=== PATIENT | female | born 1985 | race Caucasian/White ===

== ENCOUNTER 2016-10-01 10:17 | Emergency (ER) | payer MEDICAID, OTHER ==
[~2016-10-01] VITALS: Ht 162.6 cm; Wt 71.5 kg
[~2016-10-01 10:17] MED LIST: PRENAT PO
[2016-10-01 10:30] VITALS: Ht 162.6 cm; Wt 71.5 kg
[2016-10-01] MEDS ORDERED: ACETAMINOPHEN 325 MG TAB PO STA (11:04)
[2016-10-01] MEDS ORDERED: SOD CHLORIDE 0.9% 1,000 ML IV STA (11:04)
[2016-10-01] MEDS ORDERED: ONDANSETRON 4 MG INJ IV STA (11:04)
[2016-10-01 11:49] LABS: ADD SCAN DIFF NO
[2016-10-01 11:57] LABS: BASOPHILS % 0.3 % (0.0-2.0); EOSINOPHILS # 0.1 10^3/ul (0.0-0.5); EOSINOPHILS % 1.2 % (0.0-7.0); HEMATOCRIT 36.9 % (37.0-47.0); LYMPHOCYTES # 1.6 10^3/ul (0.8-2.9); LYMPHOCYTES % 17.3 % (15.0-51.0); MEAN CORPUSCULAR HGB CONC 32.5 g/dl (32.0-37.0); MEAN PLATELET VOLUME 10.7 fl (7.4-10.4); MONOCYTE # 0.5 10^3/ul (0.3-0.9); MONOCYTES % 5.4 % (0.0-11.0); NEUTROPHIL # 6.9 10^3/ul (1.6-7.5); NEUTROPHILS % 75.5 % (39.0-77.0); PLATELET COUNT 247 10^3/UL (140-415); RED BLOOD COUNT 4.29 10^6/ul (4.20-5.40); RED CELL DISTRIBUTION WIDTH 13.1 % (11.5-14.5); WHITE BLOOD COUNT 9.1 10^3/ul (4.8-10.8)
--- NOTE | 2016-10-01 12:06 | RADRPT ---
PROCEDURE: US Renal CLINICAL INDICATION: Hematuria. Pain. TECHNIQUE: Multiple sonographic images of the kidneys and bladder were obtained. Evaluation of th e kidneys and bladder was performed as well with vieira scale and color and Doppler evaluation using a curved array transducer. The images were reviewed on a high-resolution PACS workstation. COMPARISON: No prior studies are available for comparison. FINDINGS: The right kidney measures 11.1 cm. The left kidney measures 11.3 cm. There is normal echogenicity within the parenchyma of the kidneys bilaterally. There is no mass, calculus, or obstructive uropathy. No perinephric fluid collection is seen. Evaluation of the urinary bladder is unremarkable. IMPRESSION: 1. Unremarkable renal ultrasound. RPTAT: AACC Physician Gabriella Date Time Electronically viewed and signed by Physician Gabriella on 10/01/2016 12:06 /
--- NOTE | 2016-10-01 12:08 | RADRPT ---
PROCEDURE: OBSTETRICAL ULTRASOUND WITH ENDOVAGINAL IMAGES CLINICAL INDICATION: Vaginal Bleed () TECHNIQUE: Multiple sonographic images of the pelvis were obtained utilizing a transabdominal and endovaginal technique. The images were reviewed on a PACS workstation. COMPARISON: None. LMP: 08/07/2016 FINDINGS: There is a single live intrauterine with heart rate of 159 beats per minute, mean sa c diameter of 2.32 cm, yolk sac, and crown-rump length of 1.33 cm which is consistent with a gestati onal age of 7 weeks, 3 days . The estimated date of delivery by ultrasound is 05/17/2017 . The estimated gestational age by LMP is 7 weeks, 6 days . The estimated date of delivery by LMP is 05/14/2017 . Bilateral ovaries are not visualized. There are no abnormal adnexal masses. No significant pelvic free fluid is identified. IMPRESSION: Single live intrauterine consistent with a gestational age of 7 weeks, 3 days . The estimated date of delivery is 05/17/2017 . Dating by ultrasound is within 3 days of dating by LMP. Bilateral ovaries are not visualized. There are no abnormal adnexal masses. RPTAT: EE Physician Francisco Date Time Electronically viewed and signed by Physician Francisco on 10/01/2016 12:08 /
[2016-10-01 12:13] LABS: ALBUMIN 4.8 g/dl (3.3-4.9); ALBUMIN/GLOBULIN RATIO 1.33; BILIRUBIN,INDIRECT 0.8 mg/dl (0-1.1); BILIRUBIN,TOTAL 0.8 mg/dl (0.2-1.3); CALCIUM 9.8 mg/dl (8.4-10.2); CREATININE 0.5 mg/dl (0.44-1.00); POTASSIUM 4.1 mmol/L (3.5-5.1); TOTAL PROTEIN 8.4 g/dl (6.1-8.1)
[2016-10-01 12:16] LABS: ADD UMIC YES; UR ASCORBIC ACID NEGATIVE (NEGATIVE); UR BACTERIA FEW /HPF (NONE SEEN); UR BILIRUBIN (Dip) NEGATIVE (NEGATIVE); UR BLOOD (Dip) 3+ mg/dL (NEGATIVE); UR BUDDING YEAST FEW /HPF (NONE SEEN); UR CLARITY CLOUDY (CLEAR); UR COLOR YELLOW (YELLOW); UR GLUCOSE (Dip) NEGATIVE (NEGATIVE); UR KETONES (Dip) NEGATIVE (NEGATIVE); UR LEUKOCYTE ESTERASE (Dip) 3+ Leu/ul (NEGATIVE); UR NITRITE (Dip) NEGATIVE (NEGATIVE); UR RBC 47 /HPF (0-5); UR SPECIFIC GRAVITY (Dip) 1.006 (1.003-1.030); UR TOTAL PROTEIN (Dip) 2+ mg/dl (NEGATIVE); UR UROBILINOGEN (Dip) NEGATIVE (NEGATIVE); UR WBC CLUMPS MANY /HPF (NONE SEEN)
[2016-10-01 12:21] LABS: INR 1.08; PT RATIO 1.1
[2016-10-01 12:22] LABS: PARTIAL THROMBOPLASTIN TIME 33.3 Sec (25.0-35.0)
[2016-10-01] MEDS ORDERED: CEPH-443 PO (13:07)
--- NOTE | 2016-10-03 00:55 | ERD ---
ER Documentation Chief Complaint Date/Time DATE: 10/03/16 TIME: 00:51 Chief Complaint r flank pain blood in the urine and 8 weeks HPI This patient is a 31-year-old female presenting to the emergency department with complaints of right-sided flank pain and blood in her urine which she first noticed yesterday. She has never had these symptoms in the past. The patient is Ab0 LC for and her last menstrual period was on 08/07/2016. She also reports nausea. She denies any aggravating factors. Alleviating factors include laying down. She denies any fevers, or other symptoms. ROS All systems reviewed and are negative except as per history of present illness. Medications Home Meds Active Scripts Cephalexin* (Keflex*) 500 Mg Capsule, 500 MG PO BID for 7 Days, #14 CAP Prov:DELGADO GOOD PA-C 10/01/16 Reported Medications Multivit/Min/Fol Ac/Iron/Pren* ( S*) 1 Tab Tab, 1 TAB PO DAILY, TAB 10/15/13 Allergies Allergies: Coded Allergies: No Known Allergy (Verified , 01/15/14) PMhx/Soc Medical and Surgical Hx: pt denies Medical Hx, pt denies Surgical Hx Hx Alcohol Use: No Hx Substance Use: No Hx Tobacco Use: No FmHx Noncontributory for chief complaint Physical Exam Vitals Vital Signs Date Time Temp Pulse Resp B/P Pulse Ox O2 Delivery O2 Flow Rate FiO2 10/01/16 10:30 98.6 78 18 125/69 98 Physical Exam Const: Nontoxic, well-appearing female in no acute distress. Head: Atraumatic Eyes: Normal Conjunctiva ENT: Normal External Ears, Nose and Mouth. Neck: Full range of motion..~ No meningismus. Resp: Clear to auscultation bilaterally Cardio: Regular rate and rhythm, no murmurs Abd: Gravid abdomen, soft, non tender, non distended. Normal bowel sounds Skin: No petechiae or rashes Back: No midline tenderness. There is some right-sided flank tenderness on palpation but no real CVA tenderness bilaterally. Ext: No cyanosis, or edema Neur: Awake and alert Psych: Normal Mood and Affect Result Diagram: 10/01/16 1130 10/01/16 1130 Results 24 hrs Laboratory Tests Test 10/01/16 11:20 10/01/16 11:30 Urine Color YELLOW Urine Clarity CLOUDY Urine pH 8.0 Urine Specific [place] 1.006 Urine Ketones NEGATIVEmg/dL Urine Nitrite NEGATIVEmg/dL Urine Bilirubin NEGATIVEmg/dL Urine Urobilinogen NEGATIVEmg/dL Urine Leukocyte Esterase 3+Michelle/ul Urine Microscopic RBC 47/HPF Urine Microscopic WBC 141/HPF Urine Bacteria FEW/HPF Urine Yeast (Budding) FEW/HPF Urine Hemoglobin 3+mg/dL Urine Glucose NEGATIVEmg/dL Urine Total Protein 2+mg/dl White Blood Count 9.110^3/ul Red Blood Count 4.2910^6/ul Hemoglobin 12.0g/dl Hematocrit 36.9% Mean Corpuscular Volume 86.0fl Mean Corpuscular Hemoglobin 28.0pg Mean Corpuscular Hemoglobin Concent 32.5g/dl Red Cell Distribution Width 13.1% Platelet Count 43235^3/UL Mean Platelet Volume 10.7fl Neutrophils % 75.5% Lymphocytes % 17.3% Monocytes % 5.4% Eosinophils % 1.2% Basophils % 0.3% Nucleated Red Blood Cells % 0.0/100WBC Neutrophils # 6.910^3/ul Lymphocytes # 1.610^3/ul Monocytes # 0.510^3/ul Eosinophils # 0.110^3/ul Basophils # 0.010^3/ul Nucleated Red Blood Cells # 0.010^3/ul Prothrombin Time 14.0Sec Prothrombin Time Ratio 1.1 INR International Normalized Ratio 1.08 Activated Partial Thromboplast Time 33.3Sec Sodium Level 141mmol/L Potassium Level 4.1mmol/L Chloride Level 104mmol/L Carbon Dioxide Level 25mmol/L Anion Gap 16 Blood Urea Nitrogen 12mg/dl Creatinine 0.50mg/dl Glucose Level 84mg/dl Calcium Level 9.8mg/dl Total Bilirubin 0.8mg/dl Direct Bilirubin 0.00mg/dl Indirect Bilirubin 0.8mg/dl Aspartate Amino Transf (AST/SGOT) 17IU/L Alanine Aminotransferase (ALT/SGPT) 16IU/L Alkaline Phosphatase 70IU/L Total Protein 8.4g/dl Albumin 4.8g/dl Globulin 3.60g/dl Albumin/Globulin Ratio 1.33 Beta HCG, Quantitative 00627.0mIU/ml Current Medications Medications (Trade) Dose Ordered Sig/Romina Route PRN Reason Start Time Stop Time Status Last Admin Dose Admin Sodium Chloride (NS) 1,000 ml @ 1,000 mls/hr Q1H STAT IV 10/01/16 11:04 10/01/16 12:03 DC 10/01/16 11:17 Acetaminophen (Tylenol Tab) 650 mg ONCE STAT PO 10/01/16 11:04 10/01/16 11:07 DC 10/01/16 11:17 Ondansetron HCl (Zofran Inj) 4 mg ONCE STAT IV 10/01/16 11:04 10/01/16 11:07 DC 10/01/16 11:17 [place] [id number] Radiology Main Line: [phone] DIAGNOSTIC IMAGING REPORT Patient: RYAN WILLETT : 1985 Age: 31 Sex: F MR #: [id number] DOS: 10/01/16 1104 Ordering MD: DELGADO GOOD PA-C Location: [facility]TE Room/Bed: PROCEDURE: OBSTETRICAL ULTRASOUND WITH ENDOVAGINAL IMAGES CLINICAL INDICATION: Vaginal Bleed () TECHNIQUE: Multiple sonographic images of the pelvis were obtained utilizing a transabdominal and endovaginal technique. The images were reviewed on a PACS workstation. COMPARISON: None. LMP: 08/07/2016 FINDINGS: There is a single live intrauterine with heart rate of 159 beats per minute, mean sac diameter of 2.32 cm, yolk sac, and crown-rump length of 1.33 cm which is consistent with a gestational age of 7 weeks, 3 days . The estimated date of delivery by ultrasound is 05/17/2017 . The estimated gestational age by LMP is 7 weeks, 6 days . The estimated date of delivery by LMP is 05/14/2017 . Bilateral ovaries are not visualized. There are no abnormal adnexal masses. No significant pelvic free fluid is identified. IMPRESSION: Single live intrauterine consistent with a gestational age of 7 weeks , 3 days . The estimated date of delivery is 05/17/2017 . Dating by ultrasound is within 3 days of dating by LMP. Bilateral ovaries are not visualized. There are no abnormal adnexal masses. RPTAT: EE Physician Francisco Date Time Electronically viewed and signed by Saeid Shafer Physician on 10/01/2016 12:08 RA/ CC: DELGADO GOOD PA-C PROCEDURE: US Renal CLINICAL INDICATION: Hematuria. Pain. TECHNIQUE: Multiple sonographic images of the kidneys and bladder were obtained. Evaluation of the kidneys and bladder was performed as well with vieira scale and color and Doppler evaluation using a curved array transducer. The images were reviewed on a high-resolution PACS workstation. COMPARISON: No prior studies are available for comparison. FINDINGS: The right kidney measures 11.1 cm. The left kidney measures 11.3 cm. There is normal echogenicity within the parenchyma of the kidneys bilaterally. There is no mass, calculus, or obstructive uropathy. No perinephric fluid collection is seen. Evaluation of the urinary bladder is unremarkable. IMPRESSION: 1. Unremarkable renal ultrasound. Procedures/MDM EMERGENCY DEPARTMENT COURSE / MEDICAL DECISION MAKING: This is a 31-year-old female who comes to the emergency room secondary to complaints of right-sided flank pain and hematuria The patient was given p.o. Tylenol and p.o. Zofran in the department. On re- evaluation, the patient was feeling improved. Lab results reviewed and showed no significant acute abnormalities. Beta hCG was consistent with term of . Urinalysis was concerning for urinary tract infection. Radiology: OB pelvic ultrasound impression: Single live intrauterine consistent with a gestational age of 7 weeks , 3 days . The estimated date of delivery is 05/17/2017 . Dating by ultrasound is within 3 days of dating by LMP. Bilateral ovaries are not visualized. There are no abnormal adnexal masses. Ultrasound was interpreted by the radiologist. Kidney ultrasound impression: Was unremarkable and was interpreted by the radiologist. The primary diagnosis is urinary tract infection affecting . I have low suspicion for tubo-ovarian abscess, tubo-ovarian cyst, ectopic , acute abdomen, ovarian torsion, septicemia, or other emergent conditions at this time. Discharge: I have discussed the lab results and diagnostic findings with the patient and answered any questions or concerns. The patient was discharged with a prescription for cephalexin for urinary tract infection. The patient was advised to followup with their PMD in 1-2 days and to return to the Emergency Department if there are any new or worsening symptoms. The patient was advised to have close follow-up with her [employer] physician. The patient understood and agreed with the diagnosis, treatment and plan. The patient is stable for discharge at this time. Departure Diagnosis: Primary Impression: Urinary tract infection affecting Condition: Fair Patient Instructions: Understanding Urinary Tract Infections (UTIs) Referrals: [facility] YOU HAVE RECEIVED A MEDICAL SCREENING EXAM AND THE RESULTS INDICATE THAT YOU DO NOT HAVE A CONDITION THAT REQUIRES URGENT TREATMENT IN THE EMERGENCY DEPARTMENT. FURTHER EVALUATION AND TREATMENT OF YOUR CONDITION CAN WAIT UNTIL YOU ARE SEEN IN YOUR DOCTORS OFFICE WITHIN THE NEXT 1-2 DAYS. IT IS YOUR RESPONSIBILITY TO MAKE AN APPOINTMENT FOR FOLOW-UP CARE. IF YOU HAVE A PRIMARY DOCTOR --you should call your primary doctor and schedule an appointment IF YOU DO NOT HAVE A PRIMARY DOCTOR YOU CAN CALL OUR PHYSICIAN REFERRAL HOTLINE AT IF YOU CAN NOT AFFORD TO SEE A PHYSICIAN YOU CAN CHOSE FROM THE FOLLOWING [facility] [address] [facility]. [facility] [address] [facility]. [facility] [address] [facility] [facility] [address] [facility]. [facility] [address] [facility]. [facility]. [address] Additional Instructions: Follow up with your PCP within the next 1-3 days for a repeat evaluation and a possible referral to a specialist, if required. Return the the emergency department immediately if symptoms worsen or change. If you have any questions regarding medications, ask your pharmacist or us before you leave. If any adverse reactions, occur while taking your medications, discontinue the treatment and return to the emergency department immediately. If any new or worsening symptoms, uncontrolled fevers, or other unexplained symptoms occur, return to the emergency department immediately. Take your medications as directed, and complete the entire course of treatment. DELGADO GOOD PA-C Oct 03, 2016 00:55
== END 2016-10-01 13:26 | disposition home or self-care (01) ==
LOC: FTE 10:17
DX: O23.41 Unspecified infection of urinary tract in pregnancy, first trimester (principal); Z3A.01 Less than 8 weeks gestation of pregnancy
CPT/HCPCS: 76775; 76801; 80053; 81001; 84702; 85025; 85610; 85730; 86900; 86901; 87086; J2405; J7030; Z7610; 36415; 96374

== ENCOUNTER 2016-10-18 03:46 | Emergency (ER) | END 2016-10-18 06:49 | disposition home or self-care (01) | DX: O20.9 Hemorrhage in early pregnancy, unspecified (principal); O23.41 Unspecified infection of urinary tract in pregnancy, first trimester; O41.8X91 Other specified disorders of amniotic fluid and membranes, unspecified trimester, fetus 1; R10.2 Pelvic and perineal pain; Z3A.09 9 weeks gestation of pregnancy | CPT/HCPCS: 36415; 76801; 81001; 84702; 85025; 96372; J0696; Z7502; Z7610 ==

== ENCOUNTER 2017-02-24 10:06 | Outpatient (CLI) | END 2017-02-24 12:09 | disposition home or self-care (01) ==

== ENCOUNTER 2017-04-02 18:43 | Inpatient (IN) | payer OTHER ==
--- NOTE | 2017-02-24 14:45 | PN ---
Triage Information Date/Time Reason for visit: DFM Weeks of Gestation 28+ /Para 5/4 Diabetes: none Hypertention: none Objective Heart Rate: 140's Contractions: None Disposition: Discharge Assessment/Plan +FM No VB No LOF No CTXs BPP 11/18 --->discharged with precautions THEA PRUITT M.D. Feb 24, 2017 14:45
[~2017-04-02] VITALS: Ht 162.6 cm; Wt 82.8 kg
[2017-04-02 19:27] VITALS: Ht 162.6 cm; Wt 82.8 kg
[2017-04-02 19:28] VITALS: BP 118/71; PULSE 110; RESP 18
--- NOTE | 2017-04-02 21:31 | RADRPT ---
PROCEDURE: Obstetrical ultrasound for biophysical profile CLINICAL INDICATION: Biophysical profile. . TECHNIQUE: Obstetrical ultrasound of the uterus for biophysical profile. Transabdominal views are obtained. COMPARISON: US PELVIS 02/24/2017 FINDINGS: Single intrauterine gestation. Presentation: Cephalic. Placenta: Posterior No evidence of placental abruption. No evidence of placenta previa. breathing movement = 2/2 tone = 2/2 motion = 2/2 KAYCEE = 0/2 KAYCEE = 4.7 cm; previously 13.0 cm heart rate: 186 beats per minute IMPRESSION: Single intrauterine gestation. Biophysical profile 09/18 Mild new oligohydramnios. RPTAT: AADD .Elkin Jones MD, MD Date Time Electronically viewed and signed by .Elkin Jones MD, on 04/02/2017 21:30 .B/
[2017-04-02 22:19] LABS: BASOPHILS % 0.2 % (0.0-2.0); EOSINOPHILS # 0.1 10^3/ul (0.0-0.5); EOSINOPHILS % 1.1 % (0.0-7.0); HEMATOCRIT 28.4 % (37.0-47.0); HEMOGLOBIN 8.9 g/dl (12.0-16.0); LYMPHOCYTES % 10.8 % (15.0-51.0); MEAN CORPUSCULAR HEMOGLOBIN 24.9 pg (29.0-33.0); MEAN CORPUSCULAR HGB CONC 31.3 g/dl (32.0-37.0); MEAN CORPUSCULAR VOLUME 79.6 fl (82.0-101.0); MEAN PLATELET VOLUME 11.6 fl (7.4-10.4); MONOCYTE # 0.8 10^3/ul (0.3-0.9); MONOCYTES % 8.7 % (0.0-11.0); NEUTROPHIL # 6.9 10^3/ul (1.6-7.5); NEUTROPHILS % 78.2 % (39.0-77.0); NUCLEATED RED BLOOD CELLS% 0.3 /100WBC (0.0-0.0); PLATELET COUNT 217 10^3/UL (140-415); RED BLOOD COUNT 3.57 10^6/ul (4.20-5.40); RED CELL DISTRIBUTION WIDTH 15.3 % (11.5-14.5); WHITE BLOOD COUNT 8.9 10^3/ul (4.8-10.8)
[2017-04-02] MEDS ORDERED: AZITHROMYCIN 500MG/NS (PMX) 250 ML IVPB ONE ×2 (22:30)
--- NOTE | 2017-04-02 22:33 | TRIAGE ---
OB Triage Datetime Report Generated by CPN: 04/02/2017 22:33 Datetime: 04/02/2017 21:24 Vaginal Exam Membrane Status: Intact Datetime: 04/02/2017 19:21 Stage of : OB Triage Maternal Assessment Level of Consciousness: Fully Conscious DTR's/Clonus: DTRs 2+; No Clonus Headache: Denies Blurred Vision: No Respiratory Effort: Unlabored; Regular Rhythm; Equal Expansion Breath Sounds, Left: Clear and Equal Breath Sounds, Right: Clear and Equal Nausea/Vomiting: Denies RUQ Epigastric Pain: Denies Lower Extremities Edema: Bilateral Lower Extremities Degree: 1+ Upper Extremities Edema: None Degree: None Facial Edema: None Temperature Route: Oral Fall Risk Assessment History of Falling: (0) No Secondary Diagnosis: (0) No Ambulatory Aid: (0) Bedrest/Nurse Assist IV Therapy: (0) No Gait: (0) Normal/Bedrest/Immobile Mental Status: (0) Oriented to Own Ability Fall Score: 0 Fall Risk Score Definition: No Risk: No action required Labor Evaluation Monitor Mode: External Heart Rate Monitor Mode: External US Pain Assessment Pain Scale: 5 Pain Presence: Intermittent Pain Type: Ache (Annotations: RT EAR) Pain Location: EAR/ THROAT Datetime: 04/02/2017 19:03 Time of Arrival: 04/02/2017 18:34 EGA: 33.4 Arrived By: Ambulatory Arrived From: Home Chief Complaint: PT HERE FOR C/O EARACHE, COUGH, THROAT PAIN Movement: Present Contractions: Denies/Absent Rupture of Membranes: Denies Vaginal Bleeding: None Vaginal Discharge: Denies Recent Sexual Intercouse: Denies Abdominal Trauma: Not Applicable Patient Complaints: None Time Provider Notified: 04/02/2017 20:34 Provider Notified: NELSON Initial Plan: EFM Datetime: 04/02/2017 18:57 Stage of : OB Triage Temperature Route: Oral Datetime: 04/02/2017 18:55 Labor Evaluation Monitor Mode: External Heart Rate Monitor Mode: External US Datetime: 02/24/2017 10:18 Fall Score: 0 Fall Risk Score Definition: No Risk: No action required Datetime: 02/24/2017 10:17 EGA: 28.2
[2017-04-02 23:03] LABS: ADD UMIC YES; UR ASCORBIC ACID NEGATIVE (NEGATIVE); UR BACTERIA FEW /HPF (NONE SEEN); UR BILIRUBIN (Dip) NEGATIVE (NEGATIVE); UR BLOOD (Dip) 2+ mg/dL (NEGATIVE); UR CLARITY CLOUDY (CLEAR); UR COLOR YELLOW (YELLOW); UR GLUCOSE (Dip) NEGATIVE (NEGATIVE); UR KETONES (Dip) NEGATIVE (NEGATIVE); UR LEUKOCYTE ESTERASE (Dip) 3+ Leu/ul (NEGATIVE); UR NITRITE (Dip) NEGATIVE (NEGATIVE); UR RBC 2 /HPF (0-5); UR SPECIFIC GRAVITY (Dip) 1.006 (1.003-1.030); UR SQUAMOUS EPITHELIAL CELL MODERATE /HPF (FEW); UR TOTAL PROTEIN (Dip) NEGATIVE (NEGATIVE); UR UROBILINOGEN (Dip) NEGATIVE (NEGATIVE)
[2017-04-02] MEDS: LACTATED RINGER'S 1,000 ML IV SCH (23:19)
--- NOTE | 2017-04-02 23:25 | HP ---
Date/Time of Note Date/Time of Note DATE: 04/02/17 TIME: 22:53 OB - History Hx of Present Free Text/Dictation 32y.o at 33w4d presented to triage with coughing and otalgia. initial vital sign was nl except HR was 110 and afebrile EFM FHR 160 and reactive BPP revealed KAYCEE maryellen less than 5 admitted for IV hydration and dom for KAYCEE in 24hr perinatalogy consult in am Chief Complaint: non productive coughing earache Estimated Due Date: May 16, 2017 : 5 Para: 4 Spontaneous : 0 Therapeutic : 0 Care: Good Care Ultrasounds: Normal mid trimester US Obstetrical Complications: None Medical Complications: None Past Family/Social History * Past Medical, Surgical, Family and Obstetric Histories reviewed from chart. Blood Type: Unknown Rubella: unknown RPR/VDRL: Unknown GBS Status: Unknown HBsAG: Unknown OB Admission Exam Vital Signs Vital Signs Vital Signs Date Time Temp Pulse Resp B/P Pulse Ox O2 Delivery O2 Flow Rate FiO2 04/02/17 19:28 98.4 110 18 118/71 Room Air Physical Exam HEENT: WNL Heart: Rhythm Normal Lungs: Clear, Equal Abdomen: WNL Extremities: Normal Reflexes: Normal Cervical Dilatation: other Effacement: Other Station: Other Membranes: Intact Amniotic Fluid: Unevaluable Accelerations: Accelerations Present Decelerations: No Decelerations Varibility: Moderate Contractions on Admission: None Last 72 hours Lab Results CBC & BMP 04/02/17 21:22 OB Assessment/Plan Other Assessment: IUP 33w4d oligohydramnios URI Other plan: IV hydration azythromycin dom SUMI CA MD Apr 02, 2017 23:03
[2017-04-03] MEDS: LACTATED RINGER'S 1,000 ML IV SCH ×5 (05:28→18:52)
[2017-04-03] MEDS: DOCUSATE SODIUM 100 MG CAP PO SCH (09:08)
[2017-04-03] MEDS: PRENATAL VITAMIN PO SCH (09:08)
[2017-04-03] MEDS: GUAIFENESIN 20 MG/ML 5ML CUP PO PRN ×3 (13:35→22:45)
--- NOTE | 2017-04-03 17:39 | QN ---
Documentation Comment 31 years old 33 weeks and 5 days who originally came to the hospital triage unit for cold "symptom. Underwent antepartum testing noted she has oligohydramnios with KAYCEE 4.7 we are planning to continue IV hydration and repeat KAYCEE a.m. if within accepted range she may be discharged home. YOANDY MADERA MD Apr 03, 2017 17:39
[2017-04-03] MEDS ORDERED: AZITHROMYCIN 250 MG in DEXTROSE 5% 250 ML IVPB SCH (23:00)
[2017-04-04] MEDS ORDERED: AZITHROMYCIN 500MG/NS (PMX) 250 ML IVPB SCH
[2017-04-04] MEDS: LACTATED RINGER'S 1,000 ML IV SCH ×2 (02:00→04:23)
[2017-04-04] MEDS: GUAIFENESIN 20 MG/ML 5ML CUP PO PRN (08:13)
[2017-04-04] MEDS: DOCUSATE SODIUM 100 MG CAP PO SCH (09:29)
[2017-04-04] MEDS: PRENATAL VITAMIN PO SCH (09:29)
--- NOTE | 2017-04-04 09:35 | RADRPT ---
PROCEDURE: US evaluation of amniotic fluid volume. CLINICAL INDICATION: Low amniotic fluid volume. TECHNIQUE: Multiple sonographic images of the gravid uterus were obtained utilizing vieira-scale alyson ging. Sagittal and transverse images were obtained. The images were reviewed on a PACS workstation . KAYCEE was measured. COMPARISON: Biophysical profile dated 04/02/2017. FINDINGS: There is a single live intrauterine . heart rate is 148 beats per minute. Position is cephalic. Placenta is posterior grade 1 with no abruption or previa. KAYCEE is 10.5 cm. (Normal = 5-20 cm.) IMPRESSION: 1. KAYCEE is 10.5 cm. RPTAT: QQ .Jared Marsh MD, MD Date Time Electronically viewed and signed by .Jared Marsh MD, on 04/04/2017 09:35 .R/
--- NOTE | 2017-04-04 10:42 | DS ---
Date/Time of Note Date/Time of Note DATE: 04/04/17 TIME: 10:36 Discharge Summary Admission/Discharge Info Admit Date/Time Apr 02, 2017 at 22:15 Discharge Date/Time April 04, 2017 at 10:30 AM Discharge Diagnosis 33 weeks6/7 day admitted to the hospital for low KAYCEE underwent adequate IV hydration KAYCEE came up from 4.7-10.5 biophysical profile 11/18 and discharged home with recommendation of oral hydration at home return to hospital on April 07 to repeat KAYCEE Patient Condition: Good Procedures IV hydration for oligohydramnios Hx of Present Illness 33 weeks and 6 day . Oligohydramnios Hospital Course Satisfactory amniotic fluid brooke from 4.7-10.5, advised hydration at home return to the hospital to repeat KAYCEE on 07 April Home Meds Reported Medications Multivit/Min/Fol Ac/Iron/Pren* ( S*) 1 Tab Tab, 1 TAB PO DAILY, TAB 7/08/24 Follow-up Plan Return to the hospital on April 07 to repeat KAYCEE follow-up appointment at the clinic Primary Care Provider Corin Saini Time spent on discharge: < 30 minutes YOANDY MADERA MD Apr 04, 2017 10:42
[2017-04-04] MEDS ORDERED: LACTATED RINGER'S 1,000 ML IV SCH (22:09)
== END 2017-04-04 11:00 | disposition home or self-care (01) | DRG 781 ==
LOC: OBT 18:43 → L-D 18:45 → OBT 22:15 → L-D 23:40
PROVIDERS: ADMIT Obstetrics & Gynecology; ATTEND Obstetrics & Gynecology
DX: O41.03X0 Oligohydramnios, third trimester, not applicable or unspecified (principal); O99.513 Diseases of the respiratory system complicating pregnancy, third trimester; J06.9 Acute upper respiratory infection, unspecified; Z3A.34 34 weeks gestation of pregnancy
CPT/HCPCS: 76816; 76818; 81001; 85025; 86900; 86901; 87086; 87340; G0463; J0456; J7070; J7120

== ENCOUNTER 2017-04-08 11:19 | Outpatient (CLI) | payer OTHER ==
[~2017-04-08] VITALS: Ht 154.9 cm; Wt 81.2 kg
[2017-04-08 11:55] VITALS: BP 117/57; PULSE 72; RESP 18; Ht 154.9 cm; Wt 81.2 kg
--- NOTE | 2017-04-08 12:27 | RADRPT ---
PROCEDURE: US OB biophysical profile. CLINICAL INDICATION: decreased movements, low KAYCEE TECHNIQUE: Multiple sonographic images of the pelvis were obtained. The images were reviewed on a PACS workstation. COMPARISON: 04/04/17 FINDINGS: There is a single viable intrauterine gestation. Cardiac activity is present with 139 beats per min [place]. There is a vertex presentation. The placenta is posterior. There is no evidence of placental abruption. There is a normal amount of amniotic fluid with an KAYCEE = 12.1 cm. Biophysical profile: movement 2/2 tone 2/2. breathing 2/2 KAYCEE 2/2 Total 11/18 RPTAT: AA . IMPRESSION: Normal biophysical profile. . .Brannon Fry MD, MD Date Time Electronically viewed and signed by .Brannon Fry MD, MD on 04/08/2017 12:26 .S/
--- NOTE | 2017-04-08 13:32 | TRIAGE ---
OB Triage Datetime Report Generated by CPN: 04/08/2017 13:32 Datetime: 04/08/2017 12:05 Stage of : OB Triage Datetime: 04/08/2017 11:48 Stage of : OB Triage Assessment Type: Triage Maternal Assessment Level of Consciousness: Fully Conscious DTR's/Clonus: DTRs 2+; No Clonus Headache: Denies Blurred Vision: No Respiratory Effort: Unlabored; Regular Rhythm; Equal Expansion Breath Sounds, Left: Clear and Equal Breath Sounds, Right: Clear and Equal Nausea/Vomiting: Denies RUQ Epigastric Pain: Denies Facial Edema: None Temperature Route: Axillary Fall Risk Assessment History of Falling: (0) No Secondary Diagnosis: (0) No Ambulatory Aid: (0) Bedrest/Nurse Assist IV Therapy: (0) No Gait: (0) Normal/Bedrest/Immobile Mental Status: (0) Oriented to Own Ability Fall Score: 0 Fall Risk Score Definition: No Risk: No action required Labor Evaluation Frequency: 0 Monitor Mode: External Resting Tone [place]: Relaxed Heart Rate FHR Baseline Rate: 135 Monitor Mode: External US Variability: Moderate 6-25 bpm Accelerations: 10X10 Decelerations: None Category: Category I Pain Assessment Pain Scale: 0 Pain Presence: None/Denies Pain Type: N/A Pain Goal: 3 Pain Relief Measures: Comfort Measures Datetime: 04/08/2017 11:47 Time of Arrival: 04/08/2017 11:17 EGA: 34.4 Arrived By: Ambulatory Arrived From: Home Chief Complaint: FOLLOW UP KAYCEE, PRIOR HOSPTIALIZATION KAYCEE 4.5. DENIES UC'S, LEAKING OR BLEEDING Movement: Present Contractions: Denies/Absent Rupture of Membranes: Denies Vaginal Bleeding: None Vaginal Discharge: Denies Recent Sexual Intercouse: Denies Abdominal Trauma: Not Applicable Patient Complaints: None Provider Notified: CASSY Initial Plan: MONITOR, BPP/KAYCEE Datetime: 04/04/2017 10:02 Labor Evaluation Frequency: NONE AT THIS TIME Pattern: Normal: <= 5 Contractions in 10 Minutes Heart Rate FHR Baseline Rate: 145 Monitor Mode: External US FHR Baseline Changes: No Baseline Change Variability: Moderate 6-25 bpm Accelerations: 15X15 Decelerations: None Category: Category I Pain Assessment Pain Scale: 0 Pain Presence: None/Denies Pain Goal: 0 Vaginal Exam Membrane Status: Intact Datetime: 04/04/2017 09:00 Labor Evaluation Frequency: NONE AT THIS TIME Pattern: Normal: <= 5 Contractions in 10 Minutes Resting Tone [place]: Relaxed Heart Rate FHR Baseline Rate: 140 Monitor Mode: External US FHR Baseline Changes: No Baseline Change Variability: Moderate 6-25 bpm Accelerations: 15X15 Decelerations: None Category: Category I Pain Assessment Pain Scale: 0 Pain Presence: None/Denies Pain Goal: 0 Vaginal Exam Membrane Status: Intact Datetime: 04/04/2017 07:00 Labor Evaluation Frequency: NONE AT THIS TIME Labor Evaluation Frequency: X4 Monitor Mode: External Duration (sec)2399: 40-120 Quality: Mild Pattern: Normal: <= 5 Contractions in 10 Minutes Resting Tone [place]: Relaxed Resting Tone [place]: Relaxed Heart Rate FHR Baseline Rate: 140 Heart Rate FHR Baseline Rate: 145 Monitor Mode: External US Monitor Mode: External US FHR Baseline Changes: No Baseline Change FHR Baseline Changes: No Baseline Change Variability: Moderate 6-25 bpm Variability: Moderate 6-25 bpm Accelerations: 15X15 Accelerations: 15X15 Decelerations: None Decelerations: None Category: Category I Category: Category I Pain Assessment Pain Scale: 0 Pain Presence: None/Denies Pain Type: N/A Pain Goal: 0 Vaginal Exam Membrane Status: Intact Datetime: 04/04/2017 06:00 Labor Evaluation Frequency: 0 Monitor Mode: External Heart Rate FHR Baseline Rate: 145 Monitor Mode: External US FHR Baseline Changes: No Baseline Change Variability: Moderate 6-25 bpm Accelerations: 15X15 Decelerations: None Category: Category I Datetime: 04/04/2017 05:00 Labor Evaluation Frequency: X3 Monitor Mode: External Duration (sec)2399: 40-90 Quality: Mild Resting Tone [place]: Relaxed Heart Rate FHR Baseline Rate: 150 Monitor Mode: External US FHR Baseline Changes: No Baseline Change Variability: Moderate 6-25 bpm Accelerations: 15X15 Decelerations: Variable Category: Category II Datetime: 04/04/2017 04:22 Temperature Route: Oral Pain Assessment Pain Scale: 0 Datetime: 04/04/2017 04:20 Decelerations: Variable (Annotations: LASTING APPROX 40 SEC W/ FELIX APPROX 96 AND RETURN TO BL.) Datetime: 04/04/2017 04:00 Labor Evaluation Frequency: X1 Monitor Mode: External Duration (sec)2399: 120 Quality: Mild Resting Tone [place]: Relaxed Heart Rate FHR Baseline Rate: 145 Monitor Mode: External US FHR Baseline Changes: No Baseline Change Variability: Moderate 6-25 bpm Accelerations: 15X15 Decelerations: None Category: Category I Datetime: 04/04/2017 02:59 Labor Evaluation Frequency: X1 Monitor Mode: External Duration (sec)2399: 120 Quality: Mild Resting Tone [place]: Relaxed Heart Rate FHR Baseline Rate: 145 Monitor Mode: External US FHR Baseline Changes: No Baseline Change Variability: Moderate 6-25 bpm Accelerations: 15X15 Decelerations: None Category: Category I Datetime: 04/04/2017 01:59 Labor Evaluation Frequency: X2 Monitor Mode: External Duration (sec)2399: 80-120+ Quality: Mild Resting Tone [place]: Relaxed Heart Rate FHR Baseline Rate: 150 Monitor Mode: External US FHR Baseline Changes: No Baseline Change Variability: Moderate 6-25 bpm Accelerations: 15X15 Decelerations: None Category: Category I Datetime: 04/04/2017 01:00 Labor Evaluation Frequency: X1 Monitor Mode: External Duration (sec)2399: 90 Quality: Mild Resting Tone [place]: Relaxed Heart Rate FHR Baseline Rate: 155 Monitor Mode: External US FHR Baseline Changes: No Baseline Change Variability: Moderate 6-25 bpm Accelerations: 15X15 Decelerations: None Category: Category I Datetime: 04/04/2017 00:00 Labor Evaluation Frequency: 0 Monitor Mode: External Heart Rate FHR Baseline Rate: 155 Monitor Mode: External US FHR Baseline Changes: No Baseline Change Variability: Moderate 6-25 bpm Accelerations: 15X15 Category: Category I Datetime: 04/03/2017 23:00 Temperature Route: Oral Labor Evaluation Frequency: X2 Monitor Mode: External Duration (sec)2399: 90-120 Quality: Mild Resting Tone [place]: Relaxed Heart Rate FHR Baseline Rate: 155 Monitor Mode: External US FHR Baseline Changes: No Baseline Change Variability: Moderate 6-25 bpm Accelerations: 15X15 Decelerations: None Category: Category I Datetime: 04/03/2017 22:00 Labor Evaluation Frequency: 0 Monitor Mode: External Heart Rate FHR Baseline Rate: 155 Monitor Mode: External US FHR Baseline Changes: No Baseline Change Variability: Moderate 6-25 bpm Accelerations: 15X15 Decelerations: None Category: Category I Datetime: 04/03/2017 21:00 Labor Evaluation Frequency: 0 Monitor Mode: External Heart Rate FHR Baseline Rate: 155 Monitor Mode: External US FHR Baseline Changes: No Baseline Change Variability: Moderate 6-25 bpm Accelerations: 15X15 Decelerations: None Category: Category I Datetime: 04/03/2017 20:00 Stage of : Antepartum Labor Evaluation Frequency: 0 Monitor Mode: External Heart Rate FHR Baseline Rate: 150 Monitor Mode: External US FHR Baseline Changes: No Baseline Change Variability: Moderate 6-25 bpm Accelerations: 15X15 Decelerations: None Category: Category I Datetime: 04/03/2017 19:45 Assessment Type: Ongoing Assessment Maternal Assessment Level of Consciousness: Fully Conscious Headache: Denies Blurred Vision: No Respiratory Effort: Unlabored; Regular Rhythm; Equal Expansion Nausea/Vomiting: Denies RUQ Epigastric Pain: Denies Lower Extremities Edema: None Upper Extremities Edema: None Facial Edema: None Fall Risk Assessment History of Falling: (0) No Secondary Diagnosis: (0) No Ambulatory Aid: (0) Bedrest/Nurse Assist IV Therapy: (20) Yes Gait: (0) Normal/Bedrest/Immobile Mental Status: (0) Oriented to Own Ability Fall Score: 20 Fall Risk Score Definition: No Risk: No action required Datetime: 04/03/2017 19:43 Temperature Route: Oral Pain Assessment Pain Scale: 0 Datetime: 04/03/2017 18:59 Labor Evaluation Frequency: 0 Monitor Mode: External Duration (sec)2399: 0 Pattern: Normal: <= 5 Contractions in 10 Minutes Resting Tone [place]: Relaxed Contraction Comments: PT SITTING IN CHAIR AT BEDSIDE. Heart Rate FHR Baseline Rate: 150 Monitor Mode: External US FHR Baseline Changes: No Baseline Change Variability: Moderate 6-25 bpm Accelerations: 15X15 Decelerations: None Category: Category I Datetime: 04/03/2017 17:57 Labor Evaluation Frequency: 0 Monitor Mode: External Duration (sec)2399: 0 Pattern: Normal: <= 5 Contractions in 10 Minutes Resting Tone [place]: Relaxed Heart Rate FHR Baseline Rate: 150 Monitor Mode: External US FHR Baseline Changes: No Baseline Change Variability: Moderate 6-25 bpm Accelerations: 15X15 Decelerations: None Category: Category I Datetime: 04/03/2017 16:59 Labor Evaluation Frequency: 0 Monitor Mode: External Duration (sec)2399: 0 Pattern: Normal: <= 5 Contractions in 10 Minutes Resting Tone [place]: Relaxed Heart Rate FHR Baseline Rate: 150 Monitor Mode: External US FHR Baseline Changes: No Baseline Change Variability: Moderate 6-25 bpm Accelerations: 15X15 Decelerations: None Category: Category I Datetime: 04/03/2017 15:59 Labor Evaluation Frequency: 0 Monitor Mode: External Duration (sec)2399: 0 Pattern: Normal: <= 5 Contractions in 10 Minutes Resting Tone [place]: Relaxed Heart Rate FHR Baseline Rate: 150 Monitor Mode: External US FHR Baseline Changes: No Baseline Change Variability: Moderate 6-25 bpm Accelerations: 15X15 Decelerations: None Category: Category I Datetime: 04/03/2017 14:52 Labor Evaluation Frequency: 0 Monitor Mode: External Duration (sec)2399: 0 Pattern: Normal: <= 5 Contractions in 10 Minutes Contraction Comments: PT SITTING UP IN CHAIR Heart Rate FHR Baseline Rate: 150 Monitor Mode: External US FHR Baseline Changes: No Baseline Change Variability: Moderate 6-25 bpm Accelerations: 15X15 Decelerations: None Category: Category I Comments: PT SITTING UP IN CHAIR Datetime: 04/03/2017 13:56 Labor Evaluation Frequency: 0 Monitor Mode: External Duration (sec)2399: 0 Pattern: Normal: <= 5 Contractions in 10 Minutes Resting Tone [place]: Relaxed Contraction Comments: DENIES FEELING ANY UC'S. SOME SCATTERED IRRITABILTY NOTED Heart Rate FHR Baseline Rate: 140 Monitor Mode: External US FHR Baseline Changes: No Baseline Change Variability: Moderate 6-25 bpm Accelerations: 15X15 Decelerations: None Category: Category I Comments: PT SITTING UP IN CHAIR Datetime: 04/03/2017 13:00 Labor Evaluation Frequency: 0 Monitor Mode: External Duration (sec)2399: 0 Pattern: Normal: <= 5 Contractions in 10 Minutes Resting Tone [place]: Relaxed Heart Rate FHR Baseline Rate: 145 Monitor Mode: External US FHR Baseline Changes: No Baseline Change Variability: Moderate 6-25 bpm Accelerations: 15X15 Decelerations: None Category: Category I Datetime: 04/03/2017 11:57 Labor Evaluation Frequency: 0 Monitor Mode: External Duration (sec)2399: 0 Pattern: Normal: <= 5 Contractions in 10 Minutes Resting Tone [place]: Relaxed Heart Rate FHR Baseline Rate: 150 Monitor Mode: External US FHR Baseline Changes: No Baseline Change Variability: Moderate 6-25 bpm Accelerations: 15X15 Decelerations: None Category: Category I Datetime: 04/03/2017 11:00 Labor Evaluation Frequency: 0 Monitor Mode: External Duration (sec)2399: 0 Pattern: Normal: <= 5 Contractions in 10 Minutes Resting Tone [place]: Relaxed Heart Rate FHR Baseline Rate: 150 Monitor Mode: External US FHR Baseline Changes: No Baseline Change Variability: Moderate 6-25 bpm Accelerations: 15X15 Decelerations: None Category: Category I Datetime: 04/03/2017 10:00 Labor Evaluation Frequency: 0 Monitor Mode: External Duration (sec)2399: 0 Pattern: Normal: <= 5 Contractions in 10 Minutes Resting Tone [place]: Relaxed Contraction Comments: DENIES FEELING ANY UC'S Heart Rate FHR Baseline Rate: 150 Monitor Mode: External US FHR Baseline Changes: No Baseline Change Variability: Moderate 6-25 bpm Accelerations: 15X15 Decelerations: None Category: Category I Datetime: 04/03/2017 09:00 Labor Evaluation Frequency: 0 Monitor Mode: External Duration (sec)2399: 0 Pattern: Normal: <= 5 Contractions in 10 Minutes Resting Tone [place]: Relaxed Heart Rate FHR Baseline Rate: 150 Monitor Mode: External US FHR Baseline Changes: No Baseline Change Variability: Moderate 6-25 bpm Accelerations: 15X15 Decelerations: None Category: Category I Datetime: 04/03/2017 07:59 Labor Evaluation Frequency: 0 Monitor Mode: External Duration (sec)2399: 0 Pattern: Normal: <= 5 Contractions in 10 Minutes Resting Tone [place]: Relaxed Contraction Comments: PT DENIES FEELING ANY UC'S. ABDOMEN SOFT TO PALPATION Heart Rate FHR Baseline Rate: 145 Monitor Mode: External US FHR Baseline Changes: No Baseline Change Variability: Moderate 6-25 bpm Accelerations: 15X15 Decelerations: None Category: Category I Datetime: 04/03/2017 07:29 Pain Assessment Pain Scale: 0 Pain Presence: None/Denies Pain Type: N/A Datetime: 04/03/2017 07:28 Assessment Type: Ongoing Assessment Maternal Assessment Level of Consciousness: Fully Conscious DTR's/Clonus: DTRs 2+; No Clonus Headache: Denies Blurred Vision: No Respiratory Effort: Unlabored; Regular Rhythm; Equal Expansion Breath Sounds, Left: Clear and Equal Breath Sounds, Right: Clear and Equal Nausea/Vomiting: Denies RUQ Epigastric Pain: Denies Lower Extremities Edema: None Degree: None Upper Extremities Edema: None Degree: None Facial Edema: None Fall Risk Assessment History of Falling: (0) No Secondary Diagnosis: (0) No Ambulatory Aid: (0) Bedrest/Nurse Assist IV Therapy: (20) Yes Gait: (0) Normal/Bedrest/Immobile Mental Status: (0) Oriented to Own Ability Fall Score: 20 Fall Risk Score Definition: No Risk: No action required Datetime: 04/03/2017 07:00 Labor Evaluation Frequency: N/A Monitor Mode: External Resting Tone [place]: Relaxed Heart Rate FHR Baseline Rate: 145 Monitor Mode: External US FHR Baseline Changes: No Baseline Change Variability: Moderate 6-25 bpm Accelerations: 15X15 Decelerations: None Category: Category I Datetime: 04/03/2017 06:00 Labor Evaluation Frequency: N/A Monitor Mode: External Resting Tone [place]: Relaxed Heart Rate FHR Baseline Rate: 145 Monitor Mode: External US FHR Baseline Changes: No Baseline Change Variability: Moderate 6-25 bpm Accelerations: 15X15 Decelerations: Variable Category: Category II Comments: GA 33.5 Datetime: 04/03/2017 05:00 Labor Evaluation Frequency: N/A Monitor Mode: External Resting Tone [place]: Relaxed Heart Rate FHR Baseline Rate: 145 Monitor Mode: External US FHR Baseline Changes: No Baseline Change Variability: Moderate 6-25 bpm Accelerations: 15X15 Decelerations: None Category: Category I Datetime: 04/03/2017 04:00 Labor Evaluation Frequency: N/A Monitor Mode: External Resting Tone [place]: Relaxed Heart Rate FHR Baseline Rate: 155 Monitor Mode: External US FHR Baseline Changes: No Baseline Change Variability: Moderate 6-25 bpm Accelerations: Prolonged Decelerations: None Category: Category I Datetime: 04/03/2017 03:55 Temperature Route: Oral Pain Assessment Pain Scale: 0 Pain Presence: None/Denies Pain Type: N/A Pain Goal: 0 Datetime: 04/03/2017 03:00 Labor Evaluation Frequency: N/A Monitor Mode: External Resting Tone [place]: Relaxed Heart Rate FHR Baseline Rate: 155 Monitor Mode: External US FHR Baseline Changes: No Baseline Change Variability: Moderate 6-25 bpm Accelerations: 15X15 Decelerations: None Category: Category I Datetime: 04/03/2017 01:59 Labor Evaluation Frequency: N/A Monitor Mode: External Resting Tone [place]: Relaxed Heart Rate FHR Baseline Rate: 155 Monitor Mode: External US FHR Baseline Changes: No Baseline Change Variability: Moderate 6-25 bpm Accelerations: 15X15 Decelerations: None Category: Category I Datetime: 04/03/2017 01:00 Labor Evaluation Frequency: NONE Monitor Mode: External Pattern: Normal: <= 5 Contractions in 10 Minutes Resting Tone [place]: Relaxed Heart Rate FHR Baseline Rate: 165 Monitor Mode: External US FHR Baseline Changes: No Baseline Change Variability: Moderate 6-25 bpm Accelerations: 15X15 Decelerations: None Category: Category I Datetime: 04/03/2017 00:00 Assessment Type: Admission Assessment Maternal Assessment Level of Consciousness: Fully Conscious DTR's/Clonus: DTRs 2+; No Clonus Headache: Denies Blurred Vision: No Respiratory Effort: Unlabored; Regular Rhythm; Equal Expansion Breath Sounds, Left: Clear and Equal Breath Sounds, Right: Clear and Equal Nausea/Vomiting: Denies RUQ Epigastric Pain: Denies Lower Extremities Edema: None Degree: None Upper Extremities Edema: None Degree: None Facial Edema: None Temperature Route: Oral Fall Risk Assessment History of Falling: (0) No Secondary Diagnosis: (0) No Ambulatory Aid: (0) Bedrest/Nurse Assist IV Therapy: (20) Yes Gait: (0) Normal/Bedrest/Immobile Mental Status: (0) Oriented to Own Ability Fall Score: 20 Fall Risk Score Definition: No Risk: No action required Labor Evaluation Frequency: NONE Monitor Mode: External Quality: Mild Pattern: Normal: <= 5 Contractions in 10 Minutes Resting Tone [place]: Relaxed Heart Rate FHR Baseline Rate: 160 Monitor Mode: External US FHR Baseline Changes: No Baseline Change Variability: Moderate 6-25 bpm Accelerations: 15X15 Pain Assessment Pain Scale: 0 Pain Presence: None/Denies Pain Type: N/A Pain Goal: 0 Datetime: 04/02/2017 23:50 Stage of : Antepartum Datetime: 04/02/2017 23:48 Stage of : Antepartum Temperature Route: Oral Datetime: 04/02/2017 23:45 Time of Arrival: 04/02/2017 23:45 EGA: 33.5 Arrived By: Wheelchair Arrived From: Other Unit in Hospital Datetime: 04/02/2017 23:32 Labor Evaluation Frequency: 0 Monitor Mode: External Heart Rate FHR Baseline Rate: 155 Monitor Mode: External US FHR Baseline Changes: No Baseline Change Variability: Moderate 6-25 bpm Accelerations: 15X15 Decelerations: None Category: Category I Datetime: 04/02/2017 23:00 Labor Evaluation Frequency: 0 Monitor Mode: External Heart Rate FHR Baseline Rate: 160 Monitor Mode: External US FHR Baseline Changes: No Baseline Change Variability: Moderate 6-25 bpm Accelerations: 15X15 Decelerations: None Category: Category I Datetime: 04/02/2017 22:00 Labor Evaluation Frequency: 0 Monitor Mode: External Heart Rate FHR Baseline Rate: 155 Monitor Mode: External US FHR Baseline Changes: No Baseline Change Variability: Moderate 6-25 bpm Accelerations: 15X15 Decelerations: None Category: Category I Datetime: 04/02/2017 21:00 Labor Evaluation Frequency: 0 Monitor Mode: External Heart Rate FHR Baseline Rate: 165 Monitor Mode: External US FHR Baseline Changes: No Baseline Change Variability: Moderate 6-25 bpm Accelerations: 15X15 Decelerations: None Category: Category I Datetime: 04/02/2017 20:00 Labor Evaluation Frequency: 0 Monitor Mode: External Heart Rate FHR Baseline Rate: 160 Monitor Mode: External US FHR Baseline Changes: No Baseline Change Variability: Moderate 6-25 bpm Accelerations: 15X15 Decelerations: None Category: Category I Datetime: 04/02/2017 19:21 Fall Score: 0 Fall Risk Score Definition: No Risk: No action required Datetime: 04/02/2017 19:03 EGA: 33.5 Datetime: 02/24/2017 10:18 Fall Score: 0 Fall Risk Score Definition: No Risk: No action required Datetime: 02/24/2017 10:17 EGA: 28.3
--- NOTE | 2017-04-08 17:24 | PN ---
Triage Information Date/Time April 08, 2017 Reason for visit: Follow up of KAYCEE Weeks of Gestation 34 weeks and 4 days /Para Diabetes: none Hypertention: none Additional information 32-year-old with IUP at 34 weeks and 4 days and a history of low KAYCEE noted in ultrasound couple days ago here today for repeat KAYCEE after she had hydration. She had initial KAYCEE 4.5 and subsequently after hydration KAYCEE improved to 10 and today's 12. She denies any leaking of fluid, vaginal bleeding uterine contractions or any other complaints. Denies any compensation during her antepartum course. Objective Vital Signs Date Time Temp Pulse Resp B/P Pulse Ox O2 Delivery O2 Flow Rate FiO2 04/08/17 11:55 97.8 72 18 117/57 Heart Rate: 130's Contractions: None Exam General appearance: Alert and oriented 4. Patient does not appear to be in any acute distress Abdomen: Soft, gravid, fundal height consistent with gestational age: No tenderness, no rebound tenderness, no guarding, no rigidity NST: Category 1 No contraction seen on the monitor Results/Medications Imaging Results PROCEDURE: US OB biophysical profile. CLINICAL INDICATION: decreased movements, low KAYCEE TECHNIQUE: Multiple sonographic images of the pelvis were obtained. The images were reviewed on a PACS workstation. COMPARISON: 04/04/17 FINDINGS: There is a single viable intrauterine gestation. Cardiac activity is present with 139 beats per minute. There is a vertex presentation. The placenta is posterior. There is no evidence of placental abruption. There is a normal amount of amniotic fluid with an KAYCEE = 12.1 cm. Biophysical profile: movement 2/2 tone 2/2. breathing 2/2 KAYCEE 2/2 Total 8 RPTAT: AA . IMPRESSION: Normal biophysical profile. Disposition: Discharge Assessment/Plan IUP at 34 weeks and 4 days Low KAYCEE, improved and resolved after hydration No evidence of PPROM testing reassuring Patient will be discharged home with a follow-up in 3 days in triage for repeat KAYCEE and NST labor precaution and kick counts discussed with the patient and strict precaution was given Patient verbalized understanding. All questions were answered. JANINA FARLEY MD Apr 08, 2017 17:24
== END 2017-04-08 13:27 | disposition home or self-care (01) ==
LOC: OBT 11:19 → L-D 11:19 → OBT 13:27
PROVIDERS: ATTEND Obstetrics & Gynecology
DX: O36.8130 Decreased fetal movements, third trimester, not applicable or unspecified (principal); Z3A.34 34 weeks gestation of pregnancy
CPT/HCPCS: 76818; Z7500; G0463

== ENCOUNTER 2017-04-10 22:05 | Outpatient (CLI) | payer OTHER ==
[~2017-04-10] VITALS: Ht 162.6 cm; Wt 83.2 kg
[2017-04-10 22:27] VITALS: BP 113/62; PULSE 80; RESP 18
[2017-04-10] MEDS ORDERED: GUAI-637 PO (22:29)
--- NOTE | 2017-04-11 00:14 | RADRPT ---
PROCEDURE: OB ultrasound for biophysical profile CLINICAL INDICATION: Oligohydramnios. TECHNIQUE: Multiple sonographic images of the gravid uterus performed. The images were reviewed on a PACS workstation. COMPARISON: 04/08/2017 FINDINGS: A single live intrauterine is identified with heart rate of 154 bpm. Fet us is in a cephalic presentation. Placenta is located and posterior. Biophysical profile: breathing movement = 2/2 tone = 2/2 motion = 2/2 KAYCEE = 2/2 KAYCEE = 14.6 cm. IMPRESSION: 1. Single live intrauterine gestation. 2. Biophysical profile = 8/8. 3. KAYCEE = 14.6 cm. RPTAT: HMVK .Daniel Brown MD, Date Time Electronically viewed and signed by .Daniel Brown MD, MD on 04/11/2017 00:13 .K/
--- NOTE | 2017-04-11 00:34 | PN ---
Triage Information Date/Time Reason for visit: Oligohydramnios Weeks of Gestation 35w /Para Objective Vital Signs Date Time Temp Pulse Resp B/P Pulse Ox O2 Delivery O2 Flow Rate FiO2 04/10/17 22:27 97.4 80 18 113/62 Room Air Heart Rate Comments reactive Contractions: None Results/Medications Imaging Results BPP 8/8, KAYCEE 14.6 Disposition: Discharge PHILLY GARZA Apr 11, 2017 00:34
--- NOTE | 2017-04-11 00:45 | TRIAGE ---
OB Triage Datetime Report Generated by CPN: 04/11/2017 00:45 Datetime: 04/11/2017 00:30 Stage of : OB Triage Datetime: 04/11/2017 00:02 Stage of : OB Triage Quality: Mild Pattern: Normal: <= 5 Contractions in 10 Minutes Resting Tone [place]: Relaxed Heart Rate FHR Baseline Rate: 140 Monitor Mode: External US FHR Baseline Changes: No Baseline Change Variability: Moderate 6-25 bpm Accelerations: 15X15 Decelerations: None Category: Category I Datetime: 04/10/2017 23:02 Stage of : OB Triage Labor Evaluation Frequency: x1 Monitor Mode: External Quality: Mild Pattern: Normal: <= 5 Contractions in 10 Minutes Resting Tone [place]: Relaxed Heart Rate FHR Baseline Rate: 140 Monitor Mode: External US FHR Baseline Changes: No Baseline Change Variability: Moderate 6-25 bpm Accelerations: 15X15 Decelerations: Variable Category: Category II Datetime: 04/10/2017 22:34 Time of Arrival: 04/10/2017 22:00 EGA: 34.6 Arrived By: Ambulatory Arrived From: Home Chief Complaint: w/ orders for follow-up NST/BPP for low KAYCEE Movement: Present Contractions: Denies/Absent Rupture of Membranes: Denies Vaginal Bleeding: None Vaginal Discharge: Denies Recent Sexual Intercouse: Denies Abdominal Trauma: Not Applicable Patient Complaints: None Time Provider Notified: 04/10/2017 23:00 Provider Notified: Dr Pak Initial Plan: NST/BPP Datetime: 04/10/2017 22:13 Stage of : OB Triage Maternal Assessment Level of Consciousness: Fully Conscious Headache: Denies Blurred Vision: No Nausea/Vomiting: Denies RUQ Epigastric Pain: Denies Facial Edema: None Monitor Mode: External Resting Tone [place]: Relaxed Heart Rate FHR Baseline Rate: 145 Monitor Mode: External US Pain Assessment Pain Scale: 0 Pain Presence: None/Denies Pain Type: N/A Datetime: 04/08/2017 13:21 Stage of : OB Triage Maternal Assessment Level of Consciousness: Fully Conscious DTR's/Clonus: DTRs 2+; No Clonus Headache: Denies Breath Sounds, Left: Clear and Equal Breath Sounds, Right: Clear and Equal Nausea/Vomiting: Denies RUQ Epigastric Pain: Denies Labor Evaluation Frequency: 0 Monitor Mode: External Resting Tone [place]: Relaxed Heart Rate FHR Baseline Rate: 135 Monitor Mode: External US Variability: Moderate 6-25 bpm Decelerations: None Category: Category I Pain Assessment Pain Scale: 0 Pain Presence: None/Denies Pain Type: N/A Pain Goal: 3 Pain Relief Measures: Comfort Measures Datetime: 04/08/2017 11:48 Fall Risk Assessment Fall Score: 0 Fall Risk Score Definition: No Risk: No action required Datetime: 04/08/2017 11:47 EGA: 34.4 Datetime: 04/03/2017 19:45 Fall Risk Assessment Fall Score: 20 Fall Risk Score Definition: No Risk: No action required Datetime: 04/03/2017 07:28 Fall Risk Assessment Fall Score: 20 Fall Risk Score Definition: No Risk: No action required Datetime: 04/03/2017 00:00 Fall Risk Assessment Fall Score: 20 Fall Risk Score Definition: No Risk: No action required Datetime: 04/02/2017 23:45 EGA: 33.5 Datetime: 04/02/2017 19:21 Fall Risk Assessment Fall Score: 0 Fall Risk Score Definition: No Risk: No action required Datetime: 04/02/2017 19:03 EGA: 33.5 Datetime: 02/24/2017 10:18 Fall Risk Assessment Fall Score: 0 Fall Risk Score Definition: No Risk: No action required Datetime: 02/24/2017 10:17 EGA: 28.3
== END 2017-04-11 00:38 | disposition home or self-care (01) ==
LOC: OBT 22:05 → L-D 22:09 → OBT 04-11 00:38
PROVIDERS: ATTEND Obstetrics & Gynecology
DX: O41.03X0 Oligohydramnios, third trimester, not applicable or unspecified (principal); Z3A.35 35 weeks gestation of pregnancy
CPT/HCPCS: 76818

== ENCOUNTER 2017-04-15 01:16 | Inpatient (IN) | END 2017-04-17 12:45 | disposition home or self-care (01) | DRG 782 ==

== ENCOUNTER 2017-04-19 20:02 | Outpatient (CLI) | END 2017-04-19 22:55 | disposition home or self-care (01) ==

== ENCOUNTER 2017-05-03 09:07 | Inpatient (IN) | END 2017-05-05 17:38 | disposition home or self-care (01) | DRG 775 ==

== ENCOUNTER 2017-07-04 20:40 | Emergency (ER) | END 2017-07-05 00:22 | disposition home or self-care (01) ==

== ENCOUNTER 2018-10-18 07:43 | Emergency (ER) | payer SELFPAY ==
[~2018-10-18] VITALS: Ht 157.5 cm; Wt 74.6 kg
[~2018-10-18 07:43] MED LIST changes: +BEN25 PO; +FAMO-96 PO
[2018-10-18 07:52] VITALS: BP 140/77; PULSE 77; RESP 18; Ht 157.5 cm; Wt 74.6 kg
[2018-10-18] MEDS ORDERED: LIDOCAINE 2% (MDV) 20 ML INJ INJ STA (08:10)
[2018-10-18] MEDS ORDERED: ACET325T33 PO (08:47)
--- NOTE | 2018-10-18 08:51 | ERD ---
ER Documentation Chief Complaint Chief Complaint left big toe nail bed red, swollen painful x1wk HPI 33-year-old female presented to ED for left big toe pain. Patient denies any trauma to the toe she states that it just hurts. Patient denies any allergies to medication aches this is never happened to her before and states that it hurts when she touches her toe and when she walks. ROS All systems reviewed and are negative except as per history of present illness. Medications Home Meds Active Scripts Acetaminophen* (Tylenol*) 325 Mg Tablet, 1 TAB PO Q6 PRN for PAIN AND OR ELEVATED TEMP, #20 TAB Prov:KAMI PIERRE PA-C 10/18/18 Famotidine* (Pepcid*) 20 Mg Tablet, 20 MG PO BID for 7 Days, TAB Prov:WALT RICARDO MD 07/05/17 Diphenhydramine Hcl* (Benadryl*) 25 Mg Cap, 25 MG PO Q6 PRN for ITCHING/RASH, #30 TAB Prov:WALT RICARDO MD 07/05/17 Reported Medications Multivit/Min/Fol Ac/Iron/Pren* ( S*) 1 Tab Tab, 1 TAB PO DAILY, TAB 10/15/13 Allergies Allergies: Coded Allergies: No Known Allergy (Verified , 05/03/17) PMhx/Soc History of Surgery: No Anesthesia Reaction: No Hx Neurological Disorder: No Hx Respiratory Disorders: No Hx Cardiac Disorders: No Hx Psychiatric Problems: No Hx Miscellaneous Medical Probl: No Hx Alcohol Use: No Hx Substance Use: No Hx Tobacco Use: No FmHx Family History: No diabetes, No coronary disease, No other Physical Exam Vitals Vital Signs Date Temp Pulse Resp B/P (MAP) Pulse Ox O2 O2 Flow FiO2 Time Delivery Rate 10/18/18 97.8 77 18 140/77 100 07:52 (98) Physical Exam Const: Mild distress Resp: Clear to auscultation bilaterally Cardio: Regular rate and rhythm, no murmurs Ext: Left ingrown toenail lateral side of left big toe Neur: Awake and alert Psych: Normal Mood and Affect Results 24 hrs Current Medications Medications Dose Sig/Romina Start Time Status Last (Trade) Ordered Route PRN Stop Time Admin Dose Reason Admin Lidocaine 20 ml ONCE STAT 10/18/18 DC (Xylocaine INJ 08:10 10/18/18 2% (Mdv) 20 08:13 ml) Procedures/MDM Procedures: INCISION AND DRAINAGE: The patient was verbally consented prior to procedure. Patient was explained the risks, benefits and alternatives to this procedure. Location: Left big toe Abscess size: 2 cm Anesthesia: local 1% lidocaine, 5 cc Preparation: The area was prepped in a sterile fashion using betadine x3 cleanses. A sterile field was prepared. Technique: A sterile 11 blade scalpel was used to make a 1 cm linear incision into the abscess. Procedure: A midline abscess incision was made using a sterile scalpel in a linear fashion. Purulent material was expressed with direct pressure. Blunt probing was used to break up loculations. Bleeding was minimal. One third of the medial nail was removed. Packing: The toe was cleaned and irrigated with normal saline . the toe was wrapped in gauze The patient tolerated the procedure well with no complications. The wound was dressed in sterile gauze. The patient was neurovascularly intact post-procedure. Post-procedural wound care was discussed with the patient. Medical decision making: Patient is 33-year-old female presenting to the ED for left big toe pain. Physical exam revealed patient has ingrown toenail on the left side. Patient denies any trauma. At this time I have low suspicion for osteomyelitis, fracture, sepsis, Bills's neuroma, neurovascular injury. I anesthetized the patient with lidocaine and removed one third of the nail in a sterile field and removed the nail that is grown into the side of the toe. After the procedure the patient reports improvement symptoms the patient was bandaged up and given a note for work. Advised if symptoms worsen return to ER immediately otherwise to follow-up with her primary care provider in 1 to 2 days regarding this visit. I advised patient that this tends to be a chronic issue and she may need to see podiatry down the line. I provided the patient with resources for podiatry. Patient no further questions upon discharge and is agreement to the treatment plan. Prescription for home: Acetaminophen I have discussed with the patient proper use and common side effects to expert with the medication . I advised the patient/family to speak with the pharmacist dispensing the medication to be advised of any potential drug interactions with other medication or supplements they may be taking. Discharge: At this time, patient is stable for discharge and outpatient management. I have instructed the patient to follow-up with his\her primary care physician in 1 to 2 days. I have discussed with the patient the possibility of needing to see a specialist for further work-up and imaging studies if symptoms persist. I have instructed the patient to promptly return to the ER for any new or worsening symptoms including increased pain, fever, nausea, vomiting, weakness or LOC. The patient and\or family expressed understanding of and agreement with this plan. All questions were answered. Home care instructions were provided. Disclaimer: Inadvertent spelling and grammatical errors are likely due to EHR\dictation software use and do not reflect on the overall quality of patient care. Also, please note that the electronic time recorded on the note does not necessarily reflect the actual time of the patient encounter. Departure Diagnosis: Primary Impression: Ingrown nail Condition: Stable Patient Instructions: Ingrown Toenail, Excised Referrals: CARYN MAHER [facility] YOU HAVE RECEIVED A MEDICAL SCREENING EXAM AND THE RESULTS INDICATE THAT YOU DO NOT HAVE A CONDITION THAT REQUIRES URGENT TREATMENT IN THE EMERGENCY DEPARTMENT. FURTHER EVALUATION AND TREATMENT OF YOUR CONDITION CAN WAIT UNTIL YOU ARE SEEN IN YOUR DOCTORS OFFICE WITHIN THE NEXT 1-2 DAYS. IT IS YOUR RESPONSIBILITY TO MAKE AN APPOINTMENT FOR FOLOW-UP CARE. IF YOU HAVE A PRIMARY DOCTOR --you should call your primary doctor and schedule an appointment IF YOU DO NOT HAVE A PRIMARY DOCTOR YOU CAN CALL OUR PHYSICIAN REFERRAL HOTLINE AT IF YOU CAN NOT AFFORD TO SEE A PHYSICIAN YOU CAN CHOSE FROM THE FOLLOWING [facility] CLINICS [facility] [address] [facility]. [facility] [address] [facility] [facility] [address] [facility] [address] [facility] [address] [facility]. [facility]. [address] [facility] YOU HAVE RECEIVED A MEDICAL SCREENING EXAM AND THE RESULTS INDICATE THAT YOU DO NOT HAVE A CONDITION THAT REQUIRES URGENT TREATMENT IN THE EMERGENCY DEPARTMENT. FURTHER EVALUATION AND TREATMENT OF YOUR CONDITION CAN WAIT UNTIL YOU ARE SEEN IN YOUR DOCTORS OFFICE WITHIN THE NEXT 1-2 DAYS. IT IS YOUR RESPONSIBILITY TO M RO AN APPOINTMENT FOR FOLOW-UP CARE. IF YOU HAVE A PRIMARY DOCTOR --you should call your primary doctor and schedule and appointment IF YOU DO NOT HAVE A PRIMARY DOCTOR YOU CAN CALL OUR PHYSICIAN REFERRAL HOTLINE AT . IF YOU CAN NOT AFFORD TO SEE A PHYSICIAN YOU CAN CHOSE FROM THE FOLLOWING [facility] INSTITUTIONS: [facility] [address] [place] [address] [facility] [address] [place] [address] [facility] [address] [place] [address] Additional Instructions: Call your primary care doctor TOMORROW for an appointment during the next 1-2 days.See the doctor sooner or return here if your condition worsens before your appointment time. KAMI PIERRE PA-C Oct 18, 2018 08:51
== END 2018-10-18 09:07 | disposition home or self-care (01) ==
LOC: FTE 07:43
DX: L60.0 Ingrowing nail (principal)